=== PATIENT | male | born 1995 | race Two or more races ===

== ENCOUNTER 2017-10-18 02:43 | Emergency (ER) | payer SELFPAY ==
[~2017-10-18] VITALS: Ht 170.2 cm; Wt 88.5 kg
[2017-10-18 03:13] LABS: BASO # 0.1 x10^3/uL (0.0-0.2); BASO % 1 % (0-3); EOS # 0.1 x10^3/uL (0.0-0.7); EOS % 3 % (0-3); HEMATOCRIT 44.8 % (39.0-53.0); HEMOGLOBIN 15.8 g/dL (13.0-17.5); LYMPH % 35 % (24-48); MEAN CORPUSCULAR HEMOGLOBIN 32 pg (25-35); MEAN CORPUSCULAR HGB CONC 35 g/dL (31-37); MEAN CORPUSCULAR VOLUME 90 fL (79-100); MONO # 0.5 x10^3/uL (0.0-1.1); MONO % 9 % (0-9); NEUT % 52 % (31-73); PLATELET COUNT 317 x10^3/uL (140-400); RED BLOOD COUNT 4.97 x10^6/uL (4.30-5.70); RED CELL DISTRIBUTION WIDTH 13.4 % (11.5-14.5); WHITE BLOOD COUNT 5.7 x10^3/uL (4.0-11.0)
[2017-10-18 03:21] LABS: CALCIUM 9.4 mg/dL (8.5-10.1); CREATININE 0.9 mg/dL (0.7-1.3); GFR 103.7; POTASSIUM 3.7 mmol/L (3.5-5.1)
[2017-10-18 03:27] LABS: ALBUMIN 4.2 g/dL (3.4-5.0); ALBUMIN/GLOBULIN RATIO 1.2 (1.0-1.7); TOTAL BILIRUBIN 0.5 mg/dL (0.2-1.0); TOTAL PROTEIN 7.8 g/dL (6.4-8.2)
[2017-10-18] MEDS ORDERED: ASPIRIN CHEWABLE 81 MG TABLET. PO ONE (03:30)
--- NOTE | 2017-10-18 03:55 | PHYS DOC ---
Adult General Chief Complaint Chief Complaint: CHEST PAIN HPI HPI Patient is a 22 year old male who is presenting with multiple symptoms. Primary complaint is that of chest pain sharp he says it feels like his heart is pounding out of his chest he actually grabs underneath his nipple and is trying to show me this. He says been hard for him to sleep for the last 3 or 4 days in addition he has a dull headache bilateral with bilateral neck pain as well as more to move his neck around. No trauma he did use cocaine last week he is quite worried about that he is feeling anxious. Review of Systems Review of Systems Constitutional: Denies fever or chills [] Eyes: Denies change in visual acuity, redness, or eye pain [] HENT: sinus congetion with streaks of blood Respiratory:mild cough Cardiovascular: No additional information not addressed in HPI [] Neurologic: Denies focal weakness or sensory changes [] Endocrine: Denies polyuria or polydipsia [] All other systems were reviewed and found to be within normal limits, except as documented in this note. Current Medications Current Medications Current Medications Medications (Trade) Dose Ordered Sig/Gui Start Time Stop Time Status Last Admin Dose Admin Aspirin (Children'S Aspirin) 324 mg 1X ONCE 10/18/17 03:30 10/18/17 03:31 DC 10/18/17 03:28 324 MG Lorazepam (Ativan) 1 mg 1X ONCE 10/18/17 03:30 10/18/17 03:31 DC 10/18/17 03:29 1 MG Allergies Allergies Allergies Coded Allergies Type Severity Reaction Last Updated Verified No Known Drug Allergies 10/18/17 No Physical Exam Physical Exam Constitutional: Well developed, well nourished,mild distress, non-toxic appearance. [] HENT: Normocephalic, atraumatic, bilateral external ears normal, oropharynx moist, no oral exudates, nose normal. [] Eyes: PERRLA, EOMI, conjunctiva normal, no discharge. [] Neck: Normal range of motion, no tenderness, supple, no stridor. [] Cardiovascular:Heart rate regular rhythm, no murmur [] Lungs & Thorax: Bilateral breath sounds clear to auscultation []there is reproducible chest wall tenderness noted Abdomen: Bowel sounds normal, soft, no tenderness, no masses, no pulsatile masses. [] Skin: Warm, dry, no erythema, no rash. [] Back: No tenderness, no CVA tenderness. [] Extremities: No tenderness, no cyanosis, no clubbing, ROM intact, no edema. [] Neurologic: Alert and oriented X 3, normal motor function, normal sensory function, no focal deficits noted. [] Psychologic: Affect normal, judgement normal, mood anxiousl. [] Current Patient Data Lab Values Laboratory Tests Test 10/18/17 03:00 White Blood Count 5.7 x10^3/uL (4.0-11.0) Red Blood Count 4.97 x10^6/uL (4.30-5.70) Hemoglobin 15.8 g/dL (13.0-17.5) Hematocrit 44.8 % (39.0-53.0) Mean Corpuscular Volume 90 fL (79-100) Mean Corpuscular Hemoglobin 32 pg (25-35) Mean Corpuscular Hemoglobin Concent 35 g/dL (31-37) Red Cell Distribution Width 13.4 % (11.5-14.5) Platelet Count 317 x10^3/uL (140-400) Neutrophils (%) (Auto) 52 % (31-73) Lymphocytes (%) (Auto) 35 % (24-48) Monocytes (%) (Auto) 9 % (0-9) Eosinophils (%) (Auto) 3 % (0-3) Basophils (%) (Auto) 1 % (0-3) Neutrophils # (Auto) 3.0 x10^3uL (1.8-7.7) Lymphocytes # (Auto) 2.0 x10^3/uL (1.0-4.8) Monocytes # (Auto) 0.5 x10^3/uL (0.0-1.1) Eosinophils # (Auto) 0.1 x10^3/uL (0.0-0.7) Basophils # (Auto) 0.1 x10^3/uL (0.0-0.2) Sodium Level 139 mmol/L (136-145) Potassium Level 3.7 mmol/L (3.5-5.1) Chloride Level 103 mmol/L (98-107) Carbon Dioxide Level 29 mmol/L (21-32) Anion Gap 7 (6-14) Blood Urea Nitrogen 10 mg/dL (8-26) Creatinine 0.9 mg/dL (0.7-1.3) Estimated GFR (Cockcroft-Gault) 103.7 BUN/Creatinine Ratio 11 (6-20) Glucose Level 116 mg/dL (70-99) H Calcium Level 9.4 mg/dL (8.5-10.1) Total Bilirubin 0.5 mg/dL (0.2-1.0) Aspartate Amino Transferase (AST) 26 U/L (15-37) Alanine Aminotransferase (ALT) 59 U/L (16-63) Alkaline Phosphatase 98 U/L (46-116) Troponin I Quantitative < 0.017 ng/mL (0.000-0.055) Total Protein 7.8 g/dL (6.4-8.2) Albumin 4.2 g/dL (3.4-5.0) Albumin/Globulin Ratio 1.2 (1.0-1.7) Laboratory Tests 10/18/17 03:00 Laboratory Tests 10/18/17 03:00 EKG EKG [] Interpretation Time: Normal sinus rhythm rate of 88 no ischemic changes noted no STEMI QTC 407 overall normal-appearing EKG given the patient's age Radiology/Procedures Radiology/Procedures [] Impressions: cxr negative acute. ct head neg Course & Med Decision Making Course & Med Decision Making Pertinent Labs and Imaging studies reviewed. (See chart for details) []Patient appears to have mostly anxiety could be a component of cocaine- related chest pain troponin and EKG are negative chest x-ray was negative CT head done an abundance of caution was negative acute for intracranial hemorrhage. This was done due to recent stimulant use. Was reassured and advised on healthy habits. short course ativan prn counseled on important aspects of this medication Dragon Disclaimer Dragon Disclaimer This electronic medical record was generated, in whole or in part, using a voice recognition dictation system. Departure Departure Impression: Primary Impression: Headache Disposition: 01 HOME, SELF-CARE Condition: STABLE Referrals: NO PCP (PCP) Patient Instructions: Headache, FAQs Scripts Lorazepam (ATIVAN) 1 Mg Tablet 1 MG PO BID PRN for ANXIETY / AGITATION, #15 TAB Prov: DWAYNE ALEXANDER MD 10/18/17 DWAYNE ALEXANDER MD Oct 18, 2017 03:55
--- NOTE | 2017-10-18 03:58 | RAD ---
INDICATION: headache COMPARISON: None. TECHNIQUE: Axial CT images obtained through the head without intravenous contrast. One or more of the following individualized dose reduction techniques were utilized for this examination: 1. Automated exposure control; 2. Adjustment of the mA and/or kV according to patient size; 3. Use of iterative reconstruction technique. FINDINGS: No intracranial hemorrhage. No midline shift. Basal cisterns patent. Ventricles and sulci are unremarkable. No acute osseous abnormality. Nasal septal bowing to the left. IMPRESSION: 1. No acute intracranial hemorrhage. Electronically signed by: Martin Solorzano MD (10/18/2017 3:54 AM) [facility]
[2017-10-18 04:15] VITALS: BP 127/73
[2017-10-18] MEDS ORDERED: LORA-434 PO (04:16)
--- NOTE | 2017-10-18 07:21 | EKG ---
[facility] [address] [place] [address] Test Date: 2017-10-18 Test Time: 02:48:36 Pat Name: JALYN KARIMI Department: Room: Gender: M Clay Caster: : 1995 Requested By: DWAYNE ALEXANDER Order Number: [id number] Reading MD: Sal Luis MD Measurements Intervals [place] Rate: 88 P: 0 MA: 138 QRS: 15 QRSD: 82 T: 22 QT: 334 QTc: 407 Interpretive Statements SINUS RHYTHM Electronically Signed On 10-18-2017 7:23:59 CDT by Sal Luis MD
--- NOTE | 2017-10-18 07:43 | RAD ---
Portable chest, 10/18/2017: HISTORY: Headache after cocaine use The heart size is normal. The lungs are clear. There is no evidence of pleural fluid. IMPRESSION: No acute cardiopulmonary abnormality is detected. Electronically signed by: Giuliano Villegas MD (10/18/2017 7:40 AM) [facility]
== END 2017-10-18 04:20 | disposition home or self-care (01) ==
LOC: ER 02:43
DX: R51 Headache (principal); R07.89 Other chest pain; M54.2 Cervicalgia; F41.9 Anxiety disorder, unspecified
CPT/HCPCS: 36415; 70450; 71045; 80053; 84484; 85025; 93005; 96374; 99285; J2060